=== PATIENT | male | born 1965 | race Caucasian/White ===

== ENCOUNTER 2017-11-16 16:47 | Emergency (ER) | payer OTHER ==
[~2017-11-16 16:47] MED LIST: PREDNISONE10 M2 PO
--- NOTE | 2017-11-16 17:04 | ED GENERAL ADULT ---
History of Present Illness General Chief Complaint: Allergy Symptoms Stated Complaint: BEE STING W/ +ALLERGY Source: patient, EMS Exam Limitations: no limitations Vital Signs & Intake/Output Vital Signs & Intake/Output Vital Signs Date Time Temp Pulse Resp B/P B/P Pulse O2 O2 Flow FiO2 Mean Ox Delivery Rate 11/16 2006 98.4 70 16 140/87 96 Room Air 11/16 1657 96 Room Air 11/16 1651 98.3 93 19 140/82 99 Room Air Room Air Allergies Coded Allergies: bee pollen (ANAPHYLAXIS 10/10/17) Reconcile Medications Epinephrine (Epipen) 0.3 MG/0.3 ML AUTO.INJCT 1 NICKI IM ONCE PRN anaphylaxis Prednisone 10 MG TABLET 1 TAB PO DAILY ALLERGIC REACTION TAKE 3 TABS FOR 3 DAYS THEN TAKE 2 TABS FOR 3 DAYS THEN TAKE 1 TAB FOR 3 DAYS Triage Note: 52M W KNOWN ANAPYHYLACTIC REACTION TO BEES WAS STUNG ON RIGHT SHOULDER APPROX 30MINS MEDICAL/SURGERY REGISTERED NURSE AND STARTED FEELING SOB WITH SCRATCHY THROAT. ADMINISTERED HIMSELF EPI PEN AND TOOK BENADRYL MEDICAL/SURGERY REGISTERED NURSE. ARRIVES DIAPHORETIC BUT NORMOTENSIVE AND LUNG SOUNDS CLEAR TO ALL [place]. NO OROPHARYNGEAL EDEMA OR DIFF BREATHING/SWALLOWING. NORMAL SINUS ON CM WITHOUT VENTRICULAR ECTOPY. Triage Nurses Notes Reviewed? yes Onset: Abrupt Duration: minute(s): Timing: single episode today HPI: 52-year-old male with a history of rheumatoid arthritis and anaphylactic bee allergy presenting status post bee sting just prior to arrival. Patient reports a bee sting to his right shoulder. He had mild shortness of breath and a scratchy sensation in his throat, he administered his EpiPen in his right thigh prophylactically to prevent anaphylaxis. Also gave himself 50 mg of oral Benadryl. He did not receive any additional medications in route with EMS. On arrival to the emergency department patient is asymptomatic and has no complaints. Triage note mentions diaphoresis, but there is no diaphoresis on my exam. Pt is well appearing, speaking in full sentences, with normal VS. (Gina Sevilla) Past History Travel History Traveled to [place] past 21 day No Medical History Any Pertinent Medical History? see below for history Neurological: NONE EENT: NONE Cardiovascular: NONE Respiratory: NONE Gastrointestinal: NONE Hepatic: NONE Musculoskeletal: rheumatoid arthritis Psychiatric: NONE Endocrine: NONE Surgical History Surgical History: non-contributory Psychosocial History What is your primary language Palauan Tobacco Use: Never used Family History Hx Contributory? No (Gina Sevilla) Review of Systems Review of Systems Constitutional: Reports: no symptoms. EENTM: Reports: see HPI. Respiratory: Reports: see HPI. Cardiovascular: Reports: no symptoms. GI: Reports: no symptoms. Genitourinary: Reports: no symptoms. Musculoskeletal: Reports: no symptoms. Skin: Reports: no symptoms. Neurological/Psychological: Reports: no symptoms. Hematologic/Endocrine: Reports: no symptoms. Immunologic/Allergic: Reports: no symptoms. All Other Systems: Reviewed and Negative (Gina Sevilla) Physical Exam Physical Exam General Appearance: well developed/nourished, no apparent distress, alert, awake , comfortable Comments: Gen.: Well-nourished, well-developed, no acute distress. Head: Normocephalic, atraumatic. Eyes: Normal inspection bilaterally Ears: Normal inspection bilaterally Nose: Normal inspection Throat: No oropharyngeal edema, no angioedema Neck: Normal inspection Lungs: clear to auscultation bilaterally, normnal breath sounds Heart: regular rate and rhythm Abdomen: soft and non-tender Extremities: Normal inspection Neurologic: alert and oriented x3, steady gait Skin: warm and dry, no rashes Psychiatric: Normal mood and affect, no apparent delusions or hallucinations, behavior appropriate Core Measures ACS in differential dx? No CVA/TIA Diagnosis: No Sepsis Present: No Sepsis Focused Exam Completed? No (Gina Sevilla) Progress Differential Diagnoses I considered the following diagnoses in my evaluation of the patient: [Bee sting versus allergic reaction versus anaphylaxis] Plan of Care: Orders Procedure Date/time Status Regular Diet 11/17 B Active Patient was monitored in the emergency department for 3 hours from time of arrival, and 3.5 hours from time of epi administration. He has remained asymptomatic and well-appearing with normal vital signs. At this time he is requesting to be discharged home. Counseled on supportive care, will continue Benadryl for the next 24 hours, and given strict return precautions. Patient was given refill on his EpiPen. Initial ED EKG: none (Gina Sevilla) Departure Departure Disposition: HOME OR SELF CARE Condition: Stable Clinical Impression Primary Impression: Allergic reaction Secondary Impressions: Bee sting Referrals: Ana Solano MD (PCP/Family) Additional Instructions: Continue taking 25 mg of Benadryl every 6 hours for the next 24 hours. Follow- up with your primary care provider for reevaluation. Return to the emergency department for any new or worsening symptoms. Departure Forms: Customer Survey General Discharge Information Prescriptions: Current Visit Scripts Epinephrine (Epipen) 1 NICKI IM ONCE PRN anaphylaxis #1 INJ (Gina Sevilla) PA/EXPERIMENTAL [employer]CH[employer]IC [employer] Co-Sign Statement Statement: ED Attending supervision documentation- [] I saw and evaluated the patient. I have also reviewed all the pertinent lab results and diagnostic results. I agree with the findings and the plan of care as documented in the PA's/EXPERIMENTAL MECH[employer]IC [employer]'s documentation. [X] I have reviewed the ED Record and agree with the PA's/EXPERIMENTAL [employer]CH[employer]'s documentation. [] Additions or exceptions (if any) to the PAs/EXPERIMENTAL MECH[employer]IC [employer]'s note and plan are summarized below: [] (Norma RENDON, Emilie) Critical Care Note Critical Care Note Critical Care Time: non-applicable (Gina Sevilla)
[2017-11-16] MEDS ORDERED: EPIPEN0.3 MG/0.1 IM (20:01)
[2017-11-16 20:07] VITALS: BP 140/87
== END 2017-11-16 20:09 ==
LOC: ERH 16:47
DX: T63.441A Toxic effect of venom of bees, accidental (unintentional), initial encounter (principal); R06.02 Shortness of breath
CPT/HCPCS: 96374; 96375; J2930